=== PATIENT | male | born 1990 | race Caucasian/White ===

== ENCOUNTER 2021-08-15 10:53 | Emergency (ER) | payer BC ==
[2021-08-15 11:11] VITALS: BP 128/74; PULSE 57
[2021-08-15] MEDS ORDERED: Lidocaine 1% 10 ML MDV INJECT ONE (13:00)
== END 2021-08-15 14:42 | disposition home or self-care (01) ==
LOC: JD.ED 10:53
DX: S61.215A Laceration without foreign body of left ring finger without damage to nail, initial encounter (principal); S61.217A Laceration without foreign body of left little finger without damage to nail, initial encounter; Z72.0 Tobacco use; W23.0XXA Caught, crushed, jammed, or pinched between moving objects, initial encounter; Y99.0 Civilian activity done for income or pay
CPT/HCPCS: 12005; 73140-26-LT; 73140-LT; 99283-25; 99284

== ENCOUNTER 2021-08-26 15:30 | Emergency (ER) | payer BC | END 2021-08-26 16:38 | disposition home or self-care (01) | LOC: JD.ED 15:30 | DX: S61.412D Laceration without foreign body of left hand, subsequent encounter (principal); Z48.02 Encounter for removal of sutures | CPT/HCPCS: 99281; 99283 ==